=== PATIENT | female | born 1980 | race Caucasian/White ===

== ENCOUNTER → 2022-01-02 11:52 | Outpatient (BNVA) | payer SELFPAY | PROVIDERS: PCP Nurse Practitioner Family; Visit Provider Nurse Practitioner Family | DX: R53.83 Other fatigue (principal); M25.50 Pain in unspecified joint; R21 Rash and other nonspecific skin eruption | CPT/HCPCS: 80053; 82306; 84443; 85025; 85651; 86038; 86140; 86431 ==

== ENCOUNTER → 2022-01-16 13:56 | Outpatient (BNVA) | payer MEDICAID, SELFPAY | PROVIDERS: PCP Nurse Practitioner Family; Visit Provider Nurse Practitioner Family | DX: R70.0 Elevated erythrocyte sedimentation rate (principal); R79.82 Elevated C-reactive protein (CRP); R21 Rash and other nonspecific skin eruption | CPT/HCPCS: 85651; 86140 ==

== ENCOUNTER → 2022-04-14 10:34 | Outpatient (BNVA) | payer MEDICAID, SELFPAY | PROVIDERS: PCP Nurse Practitioner Family; Visit Provider Nurse Practitioner Family | DX: E55.9 Vitamin D deficiency, unspecified (principal); F41.9 Anxiety disorder, unspecified | CPT/HCPCS: 82306 ==

== ENCOUNTER → 2022-08-22 12:09 | Outpatient (BNVA) | payer MEDICAID, SELFPAY | PROVIDERS: PCP Nurse Practitioner Family; Visit Provider Nurse Practitioner Family | DX: E55.9 Vitamin D deficiency, unspecified (principal); F41.9 Anxiety disorder, unspecified | CPT/HCPCS: 82306 ==

== ENCOUNTER → 2024-03-12 11:23 | Outpatient (BNVA) | payer OTHER, SELFPAY | PROVIDERS: PCP Nurse Practitioner Family; Visit Provider Nurse Practitioner Family | DX: J02.9 Acute pharyngitis, unspecified (principal) | CPT/HCPCS: 87880 ==